=== PATIENT | male | born 2000 | race Caucasian/White ===

== ENCOUNTER 2021-07-07 08:28 | Emergency (ER) | payer BC ==
[~2021-07-07] VITALS: Ht 170.2 cm; Wt 65.8 kg
[2021-07-07] MEDS ORDERED: NASONEX17 GM NASAL (08:47)
[2021-07-07] MEDS ORDERED: ZYRTEC10 M5 PO (08:47)
[2021-07-07] MEDS ORDERED: GENTAK5 ML INTRAOCULR (09:05)
[2021-07-07 09:21] VITALS: BP 102/60
== END 2021-07-07 09:22 | disposition home or self-care (01) ==
LOC: M.ERS 08:28
DX: H10.32 Unspecified acute conjunctivitis, left eye (principal); Z79.899 Other long term (current) drug therapy